=== PATIENT | female | born 1935 | race Caucasian/White ===

== ENCOUNTER 2016-08-20 09:50 | Day surgery (SDC) | payer MEDICARE, OTHER ==
[~2016-08-20] VITALS: Ht 154.9 cm; Wt 80.0 kg
[~2016-08-20 09:50] MED LIST: 0.9% Sodium Chloride 1,000 ML IV PRN; ACET325T51 PO; ALEN70TA2 PO; ALLERTEC PO; ALLO300T29 PO; AMLO5TAB2 PO; ASPI-653 PO; CHOL400T3 PO; CLON-399 PO; HYDR200T4 PO; NABU500T PO; PROT40T PO; SENNA GEN PO; Sodium Chloride LOK Flush 10 mL Syringe IV PRN; fentaNYL-PF 50 mCg/mL 2 mL Inj IVPUSH PRN
[2016-08-20 10:21] VITALS: BP 153/78; PULSE 61; RESP 14; O2SAT 97
[2016-08-20] MEDS ORDERED: POLY17PO6 PO (10:25)
--- NOTE | 2016-08-20 11:02 | PCM.ENDEGD ---
EGD Date of Service: Aug 20, 2016 Physician Stanley Oh MD Pre Procedure Diagnosis: Reflux Post Procedure Dx & Findings: Esophagitis hiatal hernia Procedure Esophagogastroduodenoscopy PROCEDURE IN DETAIL: After proper sedation, Olympus video endoscope was inserted into patient's mouth and esophagus was successfully intubated. Scope introduced esophagus. Esophagus showed normal shiny whitish mucosa consistent with squamous cell component. Z line was not intact at 36 cm from the incisors. Irregularity and minimal Schatzki's ring noted. Biopsies obtained at the irregularity in the Schatzki's ring. These are placed in the same bottle. 2 cm hiatal hernia noted. The scope further advanced to the stomach. Stomach showed normal shiny mucosa with normal appearing rugae folds without any ulcer mass erosion. Cardia fundus body antrum pylorus were all visualized. Retroflexion was done. Stomach was easily inflated and deflatable using air. Scope further events to the distal duodenum. Duodenum revealed normal villous structures with normal appearing folds without any mass ulcer erosion. Impression Esophagitis and minimal Schatzki's ring. Recommendation Continue PPI and await biopsies Presedation Assessment Risks and Benefits Informed consent was obtained from the patient after all risks and benefits including but not limited to drug reaction, infection, pain, bleeding, perforation, as well as alternatives were discussed. Patient monitoring Continuous pulse oximetry, cardiac monitoring, blood pressure monitoring, IV access, and oxygen at 2L per nasal cannula. Periprocedural Fentanyl: Fentanyl 50mcg Incrementally Midazolam: Midazolam 2mg Incrementally Complications There were no periprocedural complications identified. Post Procedure Plan Post Procedure Recommendations 1. Restrict activities today. 2. Resume normal activities in the morning. 3. Resume medications. 4. GERD behavioral modification: - Avoid fatty, acidic, spicy, large meals - Do not lie down after meals - Do not eat or drink anything for at least 2 1/2 hours before going to bed at night - Discontinue tobacco and alcohol - Decrease or avoid caffeine - Avoid chocolate and mints - Decrease weight - Avoid aspirin and non steroidal anti-inflammatory agents (NSAID) such as Aleve, Advil, Mobic, Naproxen, Ibuprofen, etc 5. Add proton pump inhibitor. Take 30 minutes before 1st meal of the day. 6. Patient informed of normal post procedure side effects as bloating, drowsiness, blood streaking in the stool 7. If gastric biopsy reveal H.pylori, continue with appropriate treatment 8. If small bowel biopsy reveals celiac, continue with appropriate treatment 9. Please don't hesitate to call me with any questions Stanley Oh MD Aug 20, 2016 11:02
--- NOTE | 2016-08-20 11:25 | PCM.ENDCOL ---
Colonoscopy Date of Service: Aug 20, 2016 Physician Stanley Oh MD Pre Procedure Diagnosis: Change in bowel patterns and screening Post Procedure Dx & Findings: Polyp hemorrhoids diverticuli intact anastomosis Procedure Colonoscopy PROCEDURE IN DETAIL: Prep adequate Withdrawal time 11 minutes After unremarkable rectal examination the Olympus video colonoscope was inserted patient's anal canal and was advanced to cecum. Landmarks were identified including the ileocecal valve and appendiceal orifice. Scope was withdrawn systematically. Visualized colonic mucosa showed healthy shiny mucosa with normal healthy-appearing vasculature. In the transverse colon, there was a 1 mm polyp was removed completely using cold forceps. In the rectum, there was a 1 mm polyp which was removed completely using cold forceps. In the rectum there was a 2 mm polyp which was removed completely using cold snare. At the 20 cm from the anal verge, an anastomosis site was noted. There was circular scarring noted. Multiple diverticuli noted small to large size from the left colon all the way to the ascending colon. There was also a couple of small ones in the cecum as well. In the rectum retroflexion was done which showed hemorrhoids. Anal canal was inspected carefully on the way out and hemorrhoids noted. Impression Polyp 3 status post complete removal Diverticuli Hemorrhoids During the procedure when she was given sedation, her heart rate dropped into the mid 30s. When she woke up, it came back up rapidly to her base line in the 60's. Consider using anesthesia for the next endoscopies. Recommendation Repeat colonoscopy 3 years Diverticular diet Presedation Assessment Risks and Benefits Informed consent was obtained from the patient after all risks and benefits including but not limited to drug reaction, infection, pain, bleeding, perforation, as well as alternatives were discussed. Patient monitoring Continuous pulse oximetry, cardiac monitoring, blood pressure monitoring, IV access, and oxygen at 2L per nasal cannula. Periprocedural Fentanyl: Fentanyl 25mcg Midazolam: Midazolam 1mg Incrementally Complications There were no periprocedural complications identified. Post Procedure Plan Post Procedure Recommendations 1. Restrict activities today. 2. Resume normal activities in the morning. 3. Resume medications. 4. Patient informed of normal post procedure side effects as bloating, drowsiness, blood streaking in the stool. 5. average risk CRCS. If colon polyps come back as: -Hyperplastic- can repeat colonoscopy in 10 years -Tubular adenoma- repeat colonoscopy in 5 years -Tubulovillous/villous adenoma- repeat colonoscopy in 3 years -If any dysplasia- return to clinic as soon as possible 6. Please don't hesitate to call me with any questions. Stanley Oh MD Aug 20, 2016 11:25
[2016-08-20 11:26] VITALS: BP 140/70; PULSE 73; RESP 15; O2SAT 95
[2016-08-20 11:36] VITALS: BP 128/62; PULSE 53; RESP 15; O2SAT 97
[2016-08-20 11:47] VITALS: BP 155/69; PULSE 74; RESP 15; O2SAT 94
--- NOTE | 2016-08-22 14:55 | PATH ---
SURGICAL PATHOLOGY Attending Physician:Stanley Oh M.D. CASE STATUS: Signed Out PATIENT NAME: GINO SANDS PID: [id number] : 1935 DATE COLLECTED:08/20/2016 17:37 SPECIMEN: 1: Esophagus, Biopsy 2: Colon, Biopsy 3: Rectum, Biopsy CLINICAL HISTORY: 1). GASTRO-ESOPHAGEAL JUNCTION BIOPSY 2). TRANSVERSE POLYP 3). RECTUM POLYPS FINAL DIAGNOSIS: 1. Gastroesophageal Junction, Biopsy: Squamocolumnar junctional mucosa with focal features suggestive of reactive gastropathy in the columnar mucosa. Negative for intestinal metaplasia. Negative for dysplasia and malignancy. 2. Transverse Colon, Polyp, Biopsy: Tubular adenoma. 3. Rectum, Polyps, Biopsies: Tubular adenoma in one of two fragments. Hyperplastic polyp in one fragment. ICD10 D12.3, D12.8 GROSS DESCRIPTION: The specimen is received in three formalin filled containers labeled with the patient's name. 1). The specimen is sublabeled "GEJ" and consists of 2 portions of tissue which aggregate to 0.3 x 0.3 x 0.2 CM. The specimen is entirely submitted in cassettes 1A. 2). The specimen is sublabeled "transverse polyp" and consists of a 0.2 x 0.2 x 0.1 CM the portion of tissue which is entirely submitted in cassette 2A. 3). The specimen is sublabeled "rectal polyps" and consists of 2 portions of tissue which aggregate to 0.3 x 0.3 x 0.2 CM. The specimen is entirely submitted in cassette 3A. 08/20/2016 [facility] ICD-9 CODES: CPT CODES: 1: 62010 2: 21588 3: 87763 Electronically Signed Out Halina Garcia MD [facility] Pathology [facility], [place] [address] Technical component performed at [facility], [address] [place] [address] Ave[address], [place], [address]
== END 2016-08-20 23:59 | disposition home or self-care (01) ==
LOC: END 09:50
PROVIDERS: ATTEND Internal Medicine
DX: Z12.11 Encounter for screening for malignant neoplasm of colon (principal); D12.3 Benign neoplasm of transverse colon; D12.8 Benign neoplasm of rectum; K57.30 Diverticulosis of large intestine without perforation or abscess without bleeding; K64.8 Other hemorrhoids; K20.9 Esophagitis, unspecified; K22.2 Esophageal obstruction; K21.9 Gastro-esophageal reflux disease without esophagitis; I10 Essential (primary) hypertension; E83.52 Hypercalcemia; M81.0 Age-related osteoporosis without current pathological fracture; M06.4 Inflammatory polyarthropathy; N28.9 Disorder of kidney and ureter, unspecified; Z79.82 Long term (current) use of aspirin

== ENCOUNTER 2016-08-27 11:40 | Emergency (ER) | payer MEDICARE, OTHER ==
[~2016-08-27] VITALS: Ht 154.9 cm; Wt 84.5 kg
[~2016-08-27 11:40] MED LIST changes: -0.9% Sodium Chloride 1,000 ML IV PRN; -ALEN70TA2 PO; -NABU500T PO; +POLY17PO6 PO; -Sodium Chloride LOK Flush 10 mL Syringe IV PRN; -fentaNYL-PF 50 mCg/mL 2 mL Inj IVPUSH PRN
[2016-08-27 11:48] VITALS: BP 190/81; PULSE 60; RESP 20; O2SAT 98
--- NOTE | 2016-08-27 12:21 | ED.REPORT ---
HPI-General Illness Date of Service Aug 27, 2016 ED Provider: Dona Rodgers MD 80 year old female with a history of sleep apnea on CPAP, and HTN presents to the ER complaining of a week of shortness of breath. Patient was referred to the emergency room when she called her PCP this morning to discuss her recent amlodipine prescription due to it causing lower extremity swelling in recent weeks. She does not voice any further medical complaints. Prior to amlodipine she was on hydrochlorothiazide, but this was discontinued in anticipation of a kidney function test. Nursing Notes Stated Complaint: SHORTNESS OF BREATH Chief Complaint: Chest Pain Nursing Notes Reviewed: Yes Allergies: Coded Allergies: Penicillins (Verified Allergy, Unknown, 10/05/14) Uncoded Allergies: statins (Allergy, Mild, 08/17/16) Scheduled ([Senna Gen]) 8.65 MG PO DAILY ([Allertec]) 10 MG PO DAILY Allopurinol-Expunged Drug, Do Not Renew! (Allopurinol-Expunged Drug, Do Not Renew!) 300 Mg Tablet 300 MG PO AM Amlodipine (Amlodipine) 5 Mg Tablet 5 MG PO DAILY Aspirin-Expunged Drug, Do Not Renew! (Lo-Dose Aspirin-Expunged Drug, Do Not Renew!) 81 Mg Tablet. 81 MG PO AM Cholecalciferol (Vitamin D3) (Vitamin D3) 400 Unit Tab.chew 400 UNIT PO DAILY Clonidine ER (Clonidine ER) 0.1 Mg Tablet 0.1 MG PO BID Furosemide (Furosemide) 20 Mg Tab 20 MG PO DAILY Hydroxychloroquine-Expunged Drug, Do Not Tim (Hydroxychloroquine-Expunged Drug , Do Not Tim) 200 Mg Tablet 200 MG PO BID Lisinopril (Lisinopril) 20 Mg Tablet 20 MG PO DAILY Pantoprazole-Expunged Drug, Do Not Renew! (Protonix-Expunged Drug, Do Not Renew! ) 40 Mg Tablet. 40 MG PO AM Scheduled PRN Acetaminophen (Acetaminophen) 325 Mg Tablet 325 MG PO Q4H PRN PRN For Pain Miscellaneous Medications Polyethylene Glycol 3350 (Miralax) 17 Gm Powd.pack 17 GM PO General Time Seen by MD: 12:20 Chief Complaint Other (Shortness of Breath) Hx Obtained From: Patient Arrived By: Walk-in Sudden in Onset?: No Onset Occurred: 1 week ago Symptom Duration: Since onset Additional Notes: Lower extremity swelling Similar Sx Previous: No Past Medical History Past Medical History Two benign meningiomas, rheumatoid arthritis, dyslipidemia, chronic headaches, gout. Reports: GERD, Hypertension Reports: GI bleed Past Surgical History Sigmoid colon resection Brain surgery Reports: Cataract surgery, Hysterectomy Reports: Back/neck surgery Smoking History Unknown if Ever Smoker Social History Alcohol Use: "Social" Other Social History: Good social support Review of Systems Full Review of Systems Constitutional: Denies: Chills, Fever Respiratory: Reports: Shortness of breath, Denies: Non-productive cough Cardiovascular: Denies: Chest pain GI: Denies: Nausea, Vomiting Musculoskeletal: Reports: Extremity swelling (Lower), Denies: Extremity pain, Neck pain Complete sys rev & neg: except as marked. Physical Exam Vital Signs Vital Signs Date Time Temp Pulse Resp B/P Pulse Ox O2 Delivery O2 Flow Rate FiO2 08/27/16 16:04 36.6 57 13 145/48 97 Room Air 08/27/16 11:48 36.4 60 20 190/81 98 Initial VS: Reviewed Head / Eyes: Atraumatic, Normocephalic Neck: Supple, Non-tender, Full range of motion Abdomen / GI: Soft, Non-tender, No guarding, No rebound, No distention Skin: Warm, Dry, No cyanosis Neurologic: Alert, Oriented, Nonfocal Psychiatric: Mood/affect normal, Behavior normal, Normal thought content General/Constitutional: Awake, Alert, Well developed, Well nourished Respiratory / Chest: Breath sounds NL, No respiratory distress, No rales, No rhonchi, No wheezing Cardiovascular: Heart rate NL, Regular rhythm, Heart sounds NL, Cap refill not delayed, Peripheral circulation NL Lower Ext Edema: Positive: Bilateral 2+, Pitting Interpretation & Diagnostics Lab Results Interpretation Result Diagram: 08/27/16 1255 08/27/16 1255 Test 08/27/16 12:35 08/27/16 12:55 Hold Urine Received (Received) White Blood Count 8.0th/mm3 (3.8-10.1) Red Blood Count 3.94mil/mm3 (3.90-5.20) Hemoglobin 11.9g/dL (12.0-15.6) Hematocrit 36.7% (35.0-46.0) Mean Corpuscular Volume 93.1fL (81-100) Mean Corpuscular Hemoglobin 30.2pg (27.0-35.0) Mean Corpuscular Hemoglobin Concent 32.4% (32.0-37.0) Red Cell Distribution Width 14.9% (12.3-15.4) Platelet Count 255bil/L (150-400) Neutrophils (%) (Auto) 57.5% (40-74) Lymphocytes (%) (Auto) 29.1% (14-46) Monocytes (%) (Auto) 10.7% (4-12) Eosinophils (%) (Auto) 1.9% (0-5) Basophils (%) (Auto) 0.5% (0-3) Sodium Level 139mEq/L (134-144) Potassium Level 4.1mEq/L (3.5-5.2) Chloride Level 103mEq/L (97-108) Carbon Dioxide Level 20mmol/L (18-29) Blood Urea Nitrogen 21mg/dL (8-27) Creatinine 0.87mg/dL (0.57-1.00) Estimat Glomerular Filtration Rate 90mL/min (>59) Glucose Level 101mg/dL (60-99) Calcium Level 10.4mg/dL (8.5-10.1) Magnesium Level 1.7mg/dL (1.6-2.6) Total Bilirubin 0.3mg/dL (0.0-1.2) Aspartate Amino Transf (AST/SGOT) 23U/L (0-50) Alanine Aminotransferase (ALT/SGPT) 16U/L (0-32) Alkaline Phosphatase 83U/L (25-165) Troponin T < 0.010ug/L (0.0-0.011) Pro-B-Type Natriuretic Peptide 570.6pg/mL (0-738) Total Protein 7.1g/dL (6.4-8.4) Albumin 4.1g/dL (3.4-5.0) Hold Perkins Top Tube Received (Received) ECG Interpretation ECG Interpretation: Sinus rhythm, rate 53 IVCD Time: 12:35 Interpreted by: ED physician X-Ray Chest Interpretation Chest Xray Interpretation: IMPRESSION: No acute cardiopulmonary disease. Dictated by: Wander Russo M.D. on 08/27/2016 at 12:46 Approved by: Wander Russo M.D. on 08/27/2016 at 12:47 View: Portable, 1 view Interpretation / Wet Read by: Interpret - Radiologist Re-Eval/Medical Decision Med Decision/Clinical Course Presents with increasing lower extremity edema shortly after starting amlodipine. Workup including liver failure renal failure and heart failure all unremarkable. We will change medications. 5 days of Lasix to help with the edema that accumulated. Changed to lisinopril 20 mg a day. Continue with clonidine daily we will have her follow-up in a week with her primary care physician strongly recommend repeating renal function studies at that point Source of Hx: Old records Time of Eval: 14:45 Re-Evaluation/Progress Note: Discussed lab and imaging results and plan to discharge. Patient is amenable to the plan. Return precautions given. All other questions addressed. Counseled Regarding: Diagnosis, Lab results, Need for follow-up, When/why to return to ED Discharge & Departure Primary Impression: Edema Additional Impression: Adverse effects of medication Disposition: Home Discharge Condition All VS Reviewed: Yes Condition: Stable Additional Instructions: Take your Clonidine tonight and continue at prescribed Stop the amlodipine - this is causing the lowere extremity edema Start taking 20mg Lisinopril once daily- I have given you a prescription Take 20mg Lasix for the next 5 days to help decrease the edema that has developed over the last days (I've given you 10 in case you need it a bit longer) Schedule an appointment with your primary care provider's office for next week to have your blood pressure re-checked and repeat blood work. You will need a repeat BMP at the very least to make sure your kidney function is ok. When calling for the follow up apt, plase let them know that you were in the ER and that your blood pressure medications were changed. Return to the ER if you develop worsening shortness of breath or lower extremity swelling, chest pain, profuse sweating, nausea, or any other concerning symptoms. Referrals: Koffi Ruvalcaba DO (PCP) Rhys Attestation Portions of this note were transcribed by Slade Ray. I, Dr. Rodgers, personally performed the history, physical exam and medical decision-making; I reviewed and confirmed the accuracy of the information in the transcribed note. Signed by: Rhys Armstrong, 08/27/2016 at 14:59 copies to: Koffi Ruvalcaba Shawna L MD Aug 27, 2016 12:21 SLADE RAY Aug 27, 2016 12:23
--- NOTE | 2016-08-27 12:48 | DRSVH ---
PROCEDURE: X-RAY CHEST ONE VIEW, PORTABLE ([id number]) INDICATIONS: 80 year-old female with chest pain and shortness of breath. TECHNIQUE: One view of the chest was acquired. COMPARISON: [facility], , CHEST 1VW (PORTABLE), 10/30/2011, 10:08. FINDINGS: Surgical changes and devices: None. Lungs and pleura: No pleural effusions or pneumothorax. Lungs are clear. Mediastinum: Mediastinal contours appear normal. Heart size is normal. There is aortic atheroscler osis. Bones and chest wall: No suspicious bony lesions. Overlying soft tissues appear unremarkable. IMPRESSION: No acute cardiopulmonary disease. Dictated by: Wander Russo M.D. on 08/27/2016 at 12:46 Approved by: Wander Russo M.D. on 08/27/2016 at 12:47
[2016-08-27 13:12] LABS: BASOPHILS % (AUTO) 0.5 % (0-3); EOSINOPHILS % (AUTO) 1.9 % (0-5); MONOCYTES % (AUTO) 10.7 % (4-12); Mean Corpuscular Hemoglobin 30.2 pg (27.0-35.0); Mean Corpuscular Volume 93.1 fL (81-100); NEUTROPHILS % (AUTO) 57.5 % (40-74); Platelet Count 255 bil/L (150-400)
[2016-08-27 13:46] LABS: Magnesium 1.7 mg/dL (1.6-2.6)
[2016-08-27 13:57] LABS: TROPONIN T < 0.010 ug/L (0.0-0.011)
[2016-08-27 16:04] VITALS: BP 145/48; PULSE 57; RESP 13; O2SAT 97
[2016-08-27] MEDS ORDERED: FUR20 PO (16:24)
[2016-08-27] MEDS ORDERED: LISI-567 PO (16:24)
[2016-08-27 16:34] VITALS: BP 145/48; PULSE 57; RESP 13; O2SAT 97
== END 2016-08-27 16:35 | disposition home or self-care (01) ==
LOC: SED 11:40
DX: R60.0 Localized edema (principal); T46.1X5A Adverse effect of calcium-channel blockers, initial encounter; X58.XXXA Exposure to other specified factors, initial encounter; Y93.9 Activity, unspecified; Y92.9 Unspecified place or not applicable; Y99.9 Unspecified external cause status; G47.30 Sleep apnea, unspecified; I10 Essential (primary) hypertension; K21.9 Gastro-esophageal reflux disease without esophagitis; Z99.89 Dependence on other enabling machines and devices; Z90.710 Acquired absence of both cervix and uterus; Z79.82 Long term (current) use of aspirin; Z79.899 Other long term (current) drug therapy; Z88.0 Allergy status to penicillin; Z88.8 Allergy status to other drugs, medicaments and biological substances
CPT/HCPCS: 36415; 71010; 80053; 83735; 83880; 84484; 85025; 93005; 99285; G0463